=== PATIENT | female | born 1985 | race Caucasian/White ===

== ENCOUNTER 2016-12-02 22:12 | Inpatient (IN) | payer MEDICAID ==
[~2016-12-02] VITALS: Ht 152.4 cm; Wt 63.5 kg
[~2016-12-02 22:12] MED LIST: CIPRO500 MG PO; VICODIN 5/500 M1 TAB PO
[2016-12-02 22:15] VITALS: BP 114/60
--- NOTE | 2016-12-03 00:43 | NUR ---
PT TO OF 3
--- NOTE | 2016-12-03 00:50 | NUR ---
PATIENT BEING EVALUATED BY DR. AMBROSE.
--- NOTE | 2016-12-03 01:05 | NUR ---
31 Y/O F W/C/O ABD PAIN WHICH RADIATES TO ALL ABD, NAUSEA AND VOMITING X YESTERDAY AT 1500. PT ON MONITOR, VSS. ER MD MADE AWARE.
[2016-12-03] MEDS ORDERED: MORPHINE SULFATE 4 MG/ML SYR IVP ONE (01:10)
--- NOTE | 2016-12-03 01:10 | NUR ---
PATIENT TO ER BED 3.
[2016-12-03] MEDS ORDERED: KETOROLAC 30 MG/ML VIAL IVP ONE (02:05)
[2016-12-03] MEDS ORDERED: cefTRIAXone 1,000 MG VIAL ONE (03:18)
[2016-12-03] MEDS ORDERED: ONDANSETRON 4 MG/2 ML VIAL IVP PRN (03:50)
[2016-12-03] MEDS ORDERED: LORazepam 2 MG/ML VIAL IVP PRN (03:50)
[2016-12-03] MEDS ORDERED: ACETAMINOPHEN 325 MG TAB PO PRN (03:50)
--- NOTE | 2016-12-03 04:39 | NUR ---
Patient will be admitted to care of DR SALGADO/GILBERTO. Admited to ICU . Will go to room ICU 5. Belongings list completed. Report to ELSY JUAREZ.
--- NOTE | 2016-12-03 05:17 | NUR ---
PT TRASFERRED TO ICU 5 TEMPORARILY UNTIL 7 AM AND WILL BE TRASFER TO MED SURG.
--- NOTE | 2016-12-03 05:17 | NUR ---
Vijay sultana in EDM - 12/03/16 at 0605 by HALLE PT TRASFERERD TO ICU VIA WHEEL CHAIR. VSS.
--- NOTE | 2016-12-03 05:23 | NUR ---
ER INFORMED OF CRITICAL LAB OF LACTIC ACID 3.1. PER ORDERS TO FOLLOW IV ORDERS FOR FLUIDS AND REPEAT LACTIC. ICU NURSE ANN CALLED AND NOTIFIED D/T PT HAS BEING TRASFERRED TO ICU.
--- NOTE | 2016-12-03 05:25 | NUR ---
RECEIVED PT FROM ER VIA WHEELCHAIR. PT IS ALERT, AWAKE, ORIENTED X4. PT AMBULATORY TO BED. ATTACHED TO SHEET METAL WORK FURNACE INSTALLER, PULSE OXIMETER. IV ACCESS AT RIGHT AC 20G, PATENT, INTACT AT THIS TIME. PT IS ON NPO. NO SIGNS OF DISTRESS NOTED AT THIS TIME. BED IN LOW POSITION. SAFETY MEASURE ENSURE. PT RESTING COMFORTABLY ON BED. WILL CONTINUE TO MONITOR.
[2016-12-03] MEDS: DEXT 5% /NACL 0.9% 1,000 ML IV SCH ×3 (05:30→23:53)
[2016-12-03 05:48] VITALS: BP 136/77
[2016-12-03] MEDS ORDERED: AMPICILLIN/SULBACTAM 3 GM in NACL 0.9% 100 ML IV SCH (06:00)
[2016-12-03] MEDS: MORPHINE SULFATE 2 MG/ML SYR IVP PRN (06:31)
--- NOTE | 2016-12-03 07:18 | NUR ---
REPORT GIVEN TO ROBERT AQUINO RN FOR CONTINUITY OF CARE. PT WILL BE TRANSFER TO TELE RM 120-B.
--- NOTE | 2016-12-03 07:20 | NUR ---
PT TRANSFERRED TO [facility] 120-B VIA GURNEY ATTACHED TO INSTRUCTIONAL MATERIAL DIRECTOR. PT ON STABLE CONDITION.
--- NOTE | 2016-12-03 07:45 | NUR ---
PATIENT RECEIVED FROM ICU. PATIENT AWAKE, ALERT AND ORIENTED. NO SOB. PATIENT ON ROOM AIR. PATIENT C/O OF 6 ABD PAIN. PATIENT WAS PREVIOUSLY MEDICATED. WILL CONTINUE TO MONITOR. PATIENT PLACED ON TELE MONITORING. BED LOWERED WITH CALL LIGHT WITHIN REACH. WILL CONTINUE TO MONITOR
[2016-12-03 08:00] VITALS: BP 112/55
--- NOTE | 2016-12-03 08:22 | NUR ---
PATIENT HAS BEEN SCREENED AND CATEGORIZED MODERATE NUTRITION RISK. PATIENT WILL BE SEEN WITHIN 3-5 DAYS OF ADMISSION. 12/05/16-12/07/[address]
[2016-12-03] MEDS: HYDROcodone/APAP 5/325 MG 1 TAB TAB PO PRN ×3 (09:10→22:01)
[2016-12-03] MEDS ORDERED: NACL 0.9% 1,000 ML IV ONE (10:10)
--- NOTE | 2016-12-03 11:48 | NUR ---
NS BOLUS DONE. PATIENT ASLEEP. NO S/S OF DISTRESS NOTED
[2016-12-03 12:00] VITALS: BP_SYST 132; BP_SYST 92; BP_DIAS 43; BP_DIAS 65
[2016-12-03 16:00] VITALS: BP 92/54
--- NOTE | 2016-12-03 17:22 | NUR ---
SPOKE WITH DR LISA. TO SEE THE PATIENT LATER TODAY
--- NOTE | 2016-12-03 18:38 | NUR ---
PATIENT ASLEEP IN BED. NO S/S OF DISTRESS NOTED
--- NOTE | 2016-12-03 19:20 | NUR ---
RECEIVED REPORT FROM ELSY JONES AT BEDSIDE. INITIAL ASSESSMENT COMPLETED. PT AAOX4. PT STABLE, PT DENIES PAIN AT THIS TIME. PT HAS IV TO RIGHT AC G 20; INFUSING FLUIDS WELL. ORIENTED PT TO ROOM AND SURROUNDINGS AND USE OF CALL LIGHT. EXPLAINED PLAN OF CARE TO PT AND SHE VERBALIZES UNDERSTANDING. PT HAS SCDS ON. SAFETY MEASURES IN PLACE. WILL CONTINUE TO MONITOR PT.
--- NOTE | 2016-12-03 19:23 | NUR ---
ENDORSED CONTINUITY OF CARE TO THE NIGHT NURSE. PATIENT ENDORSED IN STABLE CONDITION
[2016-12-03 20:00] VITALS: BP 115/62
--- NOTE | 2016-12-03 20:30 | NUR ---
MARIA L GHOTRA IN TO SEE PT.
--- NOTE | 2016-12-03 20:35 | NUR ---
DR. LISA SPEAKING WITH PT ABOUT SURGERY, WILL FOLLOW UP ON ORDERS.
--- NOTE | 2016-12-03 21:15 | NUR ---
URINE TEST COLLECTED AND SENT TO LAB.
--- NOTE | 2016-12-03 21:50 | NUR ---
INFORMED CONSENT SIGNED BY PT. PT AWARE THAT SHE WILL BE HAVING SURGERY TOMORROW.
--- NOTE | 2016-12-03 21:57 | NUR ---
PT COMPLAINING OF ABDOMINAL PAIN 12/17. VS STABLE, PT REQUESTING NORCO. WILL MEDICATE ORDERED.
[2016-12-04] VITALS: BP 105/68
--- NOTE | 2016-12-04 | NUR ---
PT STABLE. PT AMBULATED TO THE RESTROOM WITH STEADY GAIT. PT BACK IN BED NOW. WILL CONTINUE TO MONITOR PT.
--- NOTE | 2016-12-04 02:10 | NUR ---
PT ON HER CELL PHONE. WILL CONTINUE TO MONITOR PT.
--- NOTE | 2016-12-04 03:41 | NUR ---
PT SLEEPING AT THIS TIME, WILL CONTINUE TO MONITOR.
[2016-12-04 04:00] VITALS: BP 112/67
--- NOTE | 2016-12-04 05:13 | NUR ---
PT SLEEPING COMFORTABLY IN BED. NO SIGNS OF DISTRESS OR DISCOMFORT NOTED. CALL LIGHT WITHIN REACH.
--- NOTE | 2016-12-04 06:05 | NUR ---
PT COMPLAINING OF ABDOMINAL PAIN 02/16. VS STABLE, WILL MEDICATE ORDERED.
[2016-12-04] MEDS: MORPHINE SULFATE 2 MG/ML SYR IVP PRN ×2 (06:07→22:48)
[2016-12-04] MEDS ORDERED: SEVOFLURANE 250 ML BTL INH ONE (06:50)
[2016-12-04] MEDS ORDERED: ROCURONIUM 50 MG/5 ML VIAL IV ONE (06:50)
[2016-12-04] MEDS ORDERED: SUCCINYLCHOLINE CHLORIDE 200 MG/10 ML VIAL IV ONE (06:50)
[2016-12-04] MEDS ORDERED: ONDANSETRON 4 MG/2 ML VIAL IVP ONE (06:50)
[2016-12-04] MEDS ORDERED: DEXAMETHASONE 4 MG/ML VIAL IVP ONE (06:50)
[2016-12-04] MEDS ORDERED: PROPOFOL 200 MG/20 ML VIAL IV ONE (06:50)
[2016-12-04] MEDS: LACTATED RINGERS 1,000 ML IV SCH ×3 (06:56→23:36)
--- NOTE | 2016-12-04 06:56 | NUR ---
PT TAKEN TO OR.
[2016-12-04] MEDS ORDERED: diphenhydrAMINE 50 MG/ML VIAL IVP PRN (07:00)
[2016-12-04] MEDS ORDERED: fentaNYL 0.05 MG/ML VIAL ONE (07:00)
[2016-12-04] MEDS ORDERED: ONDANSETRON 4 MG/2 ML VIAL IVP PRN (07:00)
[2016-12-04] MEDS ORDERED: MEPERIDINE 25 MG/ML SYR IVP PRN (07:00)
[2016-12-04] MEDS ORDERED: MIDAZOLAM 2 MG/2 ML VIAL ONE (07:00)
[2016-12-04] MEDS ORDERED: MEPERIDINE 50 MG/ML SYR ONE (07:01)
[2016-12-04] MEDS ORDERED: BUPIVACAINE-MPF 0.25% 30 ML VIAL INJ ONE (07:05)
[2016-12-04] MEDS ORDERED: ceFAZolin 1,000 MG VIAL ONE (07:10)
--- NOTE | 2016-12-04 07:15 | NUR ---
RECEIVED PATIENT REPORT. PATIENT OFF THE UNIT FOR SURGERY AT THE MOMENT
--- NOTE | 2016-12-04 07:15 | NUR ---
ENDORSED PLAN OF CARE TO DAY SHIFT NURSE. PT CURRENTLY IN OR.
[2016-12-04] MEDS: HYDROmorphone 1 MG/ML AMP IVP PRN ×2 (08:40→08:50)
[2016-12-04] MEDS ORDERED: HYDROmorphone PFS 2 MG/ML SYR ONE (08:47)
[2016-12-04 09:15] VITALS: BP 108/94
--- NOTE | 2016-12-04 09:15 | NUR ---
PATIENT BACK FROM SURGERY. NO S/S OF DISTRESS NOTED. PATIENT WAKE BUT LETHARGIC. 4 LAPAROSCOPIC INCISIONS NOTED TO THE ABDOMEN. INCISIONS CLEAN DRY AND INTACT. VSS WITHIN NORMAL LIMITS. WILL CONTINUE TO MONITOR
--- NOTE | 2016-12-04 09:45 | NUR ---
PATIENT AMBULATED TO THE BATHROOM TO VOID
[2016-12-04 12:00] VITALS: BP 114/69
[2016-12-04] MEDS: HYDROcodone/APAP 5/325 MG 1 TAB TAB PO PRN ×2 (12:32→19:45)
[2016-12-04] MEDS ORDERED: POTASSIUM CHLORIDE 10 MEQ TABER PO SCH (13:00)
[2016-12-04] MEDS ORDERED: metroNIDAZOLE 500 MG/NS PREMIX 100 ML IV SCH (13:00)
[2016-12-04] MEDS: metroNIDAZOLE 500 MG/NS PREMIX 100 ML IV SCH ×2 (13:00→20:50)
--- NOTE | 2016-12-04 13:00 | NUR ---
PATIENT ATE LUNCH AND TOLERATED REGULAR DIET WELL
[2016-12-04 16:00] VITALS: BP 96/59
[2016-12-04] MEDS: NACL 0.9% 1,000 ML IV SCH (16:18)
--- NOTE | 2016-12-04 16:54 | NUR ---
PATIENT AMBULATED IN THE UNIT. NO S/S OF DISTRESS NOTED
--- NOTE | 2016-12-04 19:24 | NUR ---
PATIENT REPORT GIVEN AT BEDSIDE. PATIENT ENDORSED IN STABLE CONDITION
--- NOTE | 2016-12-04 19:30 | NUR ---
RECEIVED REPORT FROM AM NURSE. PT AOX4, ABLE TO VERBALIZE NEEDS. PT C/O OF PAIN. SEE PAIN ASSESSMENT. WILL MEDICATE ORDERED. PT DENIES CHEST PAIN, SOB OR S/S OF ACUTE DISTRESS. PT IS S/P LAP APPENDECTOMY. 4 SMALL INCISIONS COVERED WITH STERI STRIPS ON THE ABDOMEN NOTED. ABDOMINAL BINDER ENSURED IN PLACE. IV ACCESS ASYMPTOMATIC, PATENT AND INTACT. IVF INFUSING WELL. DISCUSSED AND REVIEWED PLAN OF CARE WITH PT. PT VERBALIZES UNDERSTANDING. SAFETY MEASURES ENSURED. CALL LIGHT WITHIN REACH. PT OBSERVED TO BE AMBULATING INDEPENDENTLY, REPORTS PAIN WITH MOVEMENT. CONDITION STABLE. WILL CONTINUE TO MONITOR.
[2016-12-04 20:00] VITALS: BP 108/65
--- NOTE | 2016-12-04 20:06 | NUR ---
PT IS IN PAIN , CAN NOT PERFORMED IS AT THIS TIME.
--- NOTE | 2016-12-04 20:50 | NUR ---
IV FLAGYL ADMINISTERED WITH EDUCATION, PT VERBALIZES UNDERSTANDING. IVF INFUSING WELL. ALL NEEDS MET. SAFETY MEASURES ENSURED.
--- NOTE | 2016-12-04 23:00 | NUR ---
PT C/O PERSISTENT ABDOMINAL PAIN. SEE PAIN ASSESSMENT. MEDICATED ORDERED. INCISION SITES NOTED, NO REDNESS, NO BLEEDING, STERI STRIPS CLEAN DRY AND INTACT. CONDITION STABLE. SAFETY MEASURES ENSURED. CALL LIGHT WITHIN REACH.
[2016-12-05] MEDS: MORPHINE SULFATE 2 MG/ML SYR IVP PRN (02:48)
--- NOTE | 2016-12-05 03:00 | NUR ---
PT C/O PAIN. SEE PAIN ASSESSMENT. MORPHINE ADMINISTERED ORDERED. PT OBSERVED AMBULATING TO RESTROOM INDEPENDENTLY, PADS PROVIDED. CONDITION STABLE. SAFETY MEASURES ENSURED. CALL LIGHT WITHIN REACH. WILL CONTINUE TO MONITOR.
[2016-12-05 04:00] VITALS: BP 103/69
[2016-12-05] MEDS: metroNIDAZOLE 500 MG/NS PREMIX 100 ML IV SCH (04:57)
--- NOTE | 2016-12-05 05:00 | NUR ---
IV ROCEPHIN ADMINISTERED WITH EDUCATION. PT VERBALIZES UNDERSTANDING. IVF INFUSING WELL. CONDITION STABLE. SAFETY MEASURES ENSURED. CALL LIGHT WITHIN REACH.
[2016-12-05] MEDS: HYDROcodone/APAP 5/325 MG 1 TAB TAB PO PRN ×2 (06:42→11:46)
--- NOTE | 2016-12-05 06:45 | NUR ---
PT C/O ABD PAIN. SEE PAIN ASSESSMENT. MEDICATED WITH NORCO. ENCOURAGED PT TO AMBULATE. ASSESSED ABD, NO REDNESS, NO BLEEDING, BOWEL SOUNDS HYPOACTIVE. PT REPORTS PASSING GAS, BUT NO BOWEL MOVEMENT.
--- NOTE | 2016-12-05 07:23 | NUR ---
ENDORSED PLAN OF CARE TO AM NURSE. CONDITION STABLE.
--- NOTE | 2016-12-05 07:24 | NUR ---
RECEIVED PT AWAKE AND AMBULATING ALONG THE HALLWAYS, AAOX4 [place] SPEAKING WITH NO S/S OF ACUTE DISTRESS, WITH IV ACCESS AT RIGHT AC 20G INFUSING FLUIDS WELL. WITH 4 ABDOMINAL INCISIONS WITH STERI STRIPS DRY AND INTACT. WILL CONTINUE TO MONITOR
[2016-12-05 08:00] VITALS: BP 107/68
[2016-12-05] MEDS: NACL 0.9% 1,000 ML IV SCH (09:10)
--- NOTE | 2016-12-05 09:20 | NUR ---
PT ASLEEP RESTING ON BED WITH ZOSYN INFUSING AT IV SITE. NO COMPLAINTS AT THIS TIME.CALL LIGHT WITHIN REACH, WILL CONTINUE TO MONITOR
[2016-12-05] MEDS ORDERED: COLACE100 MG PO (11:23)
[2016-12-05] MEDS ORDERED: IBU800 M1 PO (11:23)
[2016-12-05] MEDS ORDERED: MACROBID100 M1 PO (11:23)
[2016-12-05] MEDS ORDERED: BD LACTINEX1.4 MG PO (11:23)
--- NOTE | 2016-12-05 11:47 | NUR ---
PT COMPLAINED OF PAIN TO LOWER ABDOMEN AND BACK, NORCO GIVEN PRN. WILL REASSESS
[2016-12-05] MEDS ORDERED: POTASSIUM CHLORIDE 10 MEQ TABER PO SCH (12:00)
--- NOTE | 2016-12-05 12:01 | NUR ---
PT EATING LUNCH WITH GOOD APPETITE. RELATIVES AT BEDSIDE
[2016-12-05 13:24] VITALS: BP 107/68
[2016-12-05] MEDS ORDERED: NORCO 325 MG-7.1 TAB PO (13:36)
--- NOTE | 2016-12-05 14:20 | NUR ---
DISCHARGE PRESCRIPTIONS AND INSTRUCTIONS GIVEN, PT VERBALIZED UNDERSTANDING. SURGICAL WOUND PHOTOS TAKEN AND AFFIXED IN CHART. ID [id number] AND IV ACCESS REMOVED, CATHETER TIP INTACT. PT ADVISED RE: FOLLOW UP APPOINTMENT. PT WHEELED OUT OF UNIT VIA WHEELCHAIR IN STABLE CONDITION
== END 2016-12-05 14:20 | disposition home or self-care (01) | DRG 710 ==
LOC: MED 22:12 → MIC 12-03 03:55 → MTU 12-03 07:30
PROVIDERS: ADMIT Family Medicine; ATTEND Family Medicine
PROC: 0DTJ4ZZ Resection of Appendix, Percutaneous Endoscopic Approach (ICD-10-PCS; principal; 2016-12-04 07:00)
DX: A41.9 Sepsis, unspecified organism (principal); N17.0 Acute kidney failure with tubular necrosis; N39.0 Urinary tract infection, site not specified; E78.1 Pure hyperglyceridemia; K35.80 Unspecified acute appendicitis; E66.9 Obesity, unspecified; E87.6 Hypokalemia; Z79.899 Other long term (current) drug therapy; Z68.27 Body mass index [BMI] 27.0-27.9, adult; Z71.3 Dietary counseling and surveillance; Z83.3 Family history of diabetes mellitus; Z82.49 Family history of ischemic heart disease and other diseases of the circulatory system